=== PATIENT | male | born 1985 | race Caucasian/White ===

== ENCOUNTER 2025-02-16 16:58 | Emergency (ER) | payer OTHER ==
[~2025-02-16] VITALS: Ht 180.3 cm; Wt 90.1 kg
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
--- NOTE | 2025-02-16 18:12 | RADIOLOGY REPORT ---
EXAM: DI SHOULDER, COMPLETE (MIN 2 VWS) CLINICAL HISTORY: Shoulder Pain COMPARISON: None TECHNIQUE: DI SHOULDER, COMPLETE (MIN 2 VWS) Findings/Impression: 2 views of the left shoulder. There is no evidence of an acute fracture, dislocation, blastic, or lytic lesions. No radiopaque foreign bodies. No joint effusion or superficial soft tissue abnormalities.
[2025-02-16] MEDS: ketorolac trometh 30MG/ML vial 30 MG/ML VIAL IM ONE (18:29)
[2025-02-16] MEDS ORDERED: MELO-102 PO (20:46)
[2025-02-16 21:00] VITALS: BP 145/90; PULSE 78; RESP 18; TEMP 98.6; O2SAT 99
== END 2025-02-16 21:01 | disposition home or self-care (01) ==
LOC: ER 16:59
DX: M25.512 Pain in left shoulder (principal); Z88.0 Allergy status to penicillin; X58.XXXA Exposure to other specified factors, initial encounter; Y93.55 Activity, bike riding; Y92.89 Other specified places as the place of occurrence of the external cause; Y99.8 Other external cause status
CPT/HCPCS: 73030; 96372; 99283; J1885